=== PATIENT | male | born 1990 | race Caucasian/White ===

== ENCOUNTER 2022-01-02 16:38 | Inpatient (IN) | payer OTHER ==
[2022-01-02 19:25] LABS: Basophils % (A) 0 %; Eosinophils # (A) 0.2 k/uL (0-0.7); Eosinophils % (A) 2 %; HCT 43.1 % (39.0-53.0); HGB 14.9 gm/dL (13.0-17.5); Lymphocytes # (A) 1.7 k/uL (1.0-4.8); Lymphocytes % (A) 24 %; MCH 29.3 pg (25.0-35.0); MCHC 34.5 g/dL (31.0-37.0); Mean Platelet Volume 9.8; Monocytes # (A) 0.5 k/uL (0-1.0); Monocytes % (A) 6 %; Neutrophils # (A) 4.4 k/uL (1.3-7.7); Neutrophils % (A) 64 %; Platelet Count 193 k/uL (150-450); RBC 5.08 m/uL (4.30-5.90); RDW 13.2 % (11.5-15.5); WBC 6.9 k/uL (3.8-10.6)
[2022-01-02 19:40] LABS: Acetaminophen <10.0 ug/mL; African American GFR (CKD) >90 (>60 ml/min/1.73 sqM); Alcohol <10 mg/dL; Anion Gap 14 mmol/L; Blood Urea Nitrogen 7 mg/dL (9-20); Calcium 9.6 mg/dL (8.4-10.2); Carbon Dioxide 25 mmol/L (22-30); Chloride 103 mmol/L (98-107); Glucose 80 mg/dL (74-99); Non-African American GFR(CKD) >90 (>60 ml/min/1.73 sqM); Salicylate <1.0 mg/dL; Sodium 142 mmol/L (137-145)
[2022-01-02] MEDS ORDERED: SODIUM CHLORIDE 0.9% 500 ML 500 ML IV STA (19:41)
[2022-01-02 20:33] LABS: ALT 22 U/L (4-49); AST 37 U/L (17-59); Alkaline Phosphatase 81 U/L (38-126)
--- NOTE | 2022-01-02 21:08 | ED ---
General Adult HPI - General Chief complaint: Psychiatric Symptoms Stated complaint: Mental Health Time Seen by Provider: 01/02/22 19:30 Source: patient, RN notes reviewed, old records reviewed Mode of arrival: ambulatory Limitations: no limitations - History of Present Illness Initial comments: Patient is a 31-year-old male with past medical history remarkable for chronic depression since high school who presents with Department complaining of worseni ng thoughts over the last few days. These include thoughts point hurt himself. Denies any direct attempts he states were intentional. However on Saturday he did take cocaine. States he felt ashamed of himself after and intact approximately 20 Tylenol PM 200 mg tablets at that time. Has been feeling feeling fine since. No further ingestions. Denies any nausea, vomiting, abdominal pain. Denies any chest pain, shortness breath. Denies any fevers, chills, cough. Did not seek medical attention until today. Presents with his mother for evaluation. Denies any homicidal ideations, attempts, plans. Denies any visual or auditory hallucinations. Has seen a therapist in the past but no prior admissions. Is not on any medications at home. Presents for further evaluation at this time. - Related Data Allergies Allergy/AdvReac Type Severity Reaction Status Date / Time No Known Allergies Allergy Verified 01/02/22 17:43 Review of Systems ROS Statement: Those systems with pertinent positive or pertinent negative responses have been documented in the HPI. Review of Systems: CONST: Denies fever EYES: Denies blurry vision ENT: Denies nasal congestion C/V: Denies Chest pain RESP: Denies shortness of breath GI: Denies abdominal pain : Denies dysuria SKIN: Denies rash. MSK: Denies joint pain. NEURO: Denies headache PSYCH: Denies homicidal ideations/plans/attempts. Denies visual or auditory hallucinations. He endorses suicidal ideations. Denies plans attempts. Does e ndorse an ingestion which he states was not a suicide attempt. ROS Other: All systems not noted in ROS Statement are negative. Past Medical History Past Medical History: No Reported History History of Any Multi-Drug Resistant Organisms: None Reported Past Surgical History: Adenoidectomy, Tonsillectomy Past Psychological History: No Psychological Hx Reported Smoking Status: Never smoker Past Alcohol Use History: Occasional Past Drug Use History: Cocaine General Exam - General Exam Comments Initial Comments: General: Appears in no acute distress. HEAD: Normal with no signs of head trauma. EYES: PERRLA, EOMI, conjunctiva normal, no discharge. ENT: Hearing grossly intact, normal oropharynx. RESPIRATORY: Clear breath sounds bilaterally. No wheezes, rales, or rhonchi. C/V: Regular rate and rhythm. S1 and S2 auscultated, no edema, peripheral pulses 2+ and intact throughout ABD: Abd is soft, nontender, nondistended EXT: Normal range of motion, no obvious deformity SKIN: No rashes or lesions observed on exposed skin. NEURO: Alert and oriented x 4. Cranial nerves II-XII intact. No focal sensory or strength deficits. Limitations: no limitations Course Vital Signs 01/02/22 01/02/22 17:39 17:43 Temperature 98.4 F Pulse Rate 53 L Respiratory 20 Rate Blood Pressure 137/88 O2 Sat by Pulse 100 Oximetry Medical Decision Making - Medical Decision Making Based on the patient's presentation and physical exam, I do believe. Her psychiatric evaluation. Sitter was ordered. He was placed in green scrubs. Suicide precautions were ordered. He did have a large ingestion of Tylenol 3 days ago. Has no symptoms at this time but we will obtain overdose labs at this time. Patient was in agreement this plan. Vital signs are within normal limits. Nursing staff did reach out to toxicology, who was in agreement with the plan. Follow-up labs and workup are within normal limits, cleared for evaluation by psychiatry. Laboratory studies are remarkable for negative salicylates, Tylenol, alcohol. LFTs are within normal limits. Remainder the labs are unremarkable. EKG shows no signs of acute ischemia. Patient is currently cleared at this time for evaluation by psychiatry. I did update the family as well as the patient, and they were in agreement this plan. Patient's medically cleared for evaluation by psychiatry. Disposition is pending psychiatric evaluation. Patient was admitted to inpatient psych. - Lab Data Result diagrams: 01/02/22 18:51 01/02/22 18:51 Lab Results 01/02/22 01/02/22 01/02/22 Range/Units 18:51 18:51 19:45 WBC 6.9 (3.8-10.6) k/uL RBC 5.08 (4.30-5.90) m/uL Hgb 14.9 (13.0-17.5) gm/dL Hct 43.1 (39.0-53.0) % MCV 85.0 (80.0-100.0) fL MCH 29.3 (25.0-35.0) pg MCHC 34.5 (31.0-37.0) g/dL RDW 13.2 (11.5-15.5) % Plt Count 193 (150-450) k/uL MPV 9.8 Neutrophils % 64 % Lymphocytes % 24 % Monocytes % 6 % Eosinophils % 2 % Basophils % 0 % Neutrophils # 4.4 (1.3-7.7) k/uL Lymphocytes # 1.7 (1.0-4.8) k/uL Monocytes # 0.5 (0-1.0) k/uL Eosinophils # 0.2 (0-0.7) k/uL Basophils # 0.0 (0-0.2) k/uL PT (9.0-12.0) sec INR (<1.2) APTT (22.0-30.0) sec Sodium 142 (137-145) mmol/L Potassium 4.0 (3.5-5.1) mmol/L Chloride 103 (98-107) mmol/L Carbon Dioxide 25 (22-30) mmol/L Anion Gap 14 mmol/L BUN 7 L (9-20) mg/dL Creatinine 0.72 (0.66-1.25) mg/dL Est GFR (CKD-EPI)AfAm >90 (>60 ml/min/1.73 sqM) Est GFR (CKD-EPI)NonAf >90 (>60 ml/min/1.73 sqM) Glucose 80 (74-99) mg/dL Calcium 9.6 (8.4-10.2) mg/dL AST 37 (17-59) U/L ALT 22 (4-49) U/L Alkaline Phosphatase 81 (38-126) U/L Urine Color Urine Appearance (Clear) Urine pH (5.0-8.0) Ur Specific [place] (1.001-1.035) Urine Protein (Negative) Urine Glucose (UA) (Negative) Urine Ketones (Negative) Urine Blood (Negative) Urine Nitrite (Negative) Urine Bilirubin (Negative) Urine Urobilinogen (<2.0) mg/dL Ur Leukocyte Esterase (Negative) Salicylates <1.0 mg/dL Urine Opiates Screen (NotDetected) Ur Oxycodone Screen (NotDetected) Urine Methadone Screen (NotDetected) Ur Propoxyphene Screen (NotDetected) Acetaminophen <10.0 ug/mL Ur Barbiturates Screen (NotDetected) U Tricyclic Antidepress (NotDetected) Ur Phencyclidine Scrn (NotDetected) Ur Amphetamines Screen (NotDetected) U Methamphetamines Scrn (NotDetected) U Benzodiazepines Scrn (NotDetected) Urine Cocaine Screen (NotDetected) U Marijuana (THC) Screen (NotDetected) Serum Alcohol <10 mg/dL Coronavirus (PCR) (Not Detectd) 01/02/22 01/02/22 01/02/22 Range/Units 20:20 20:20 20:20 WBC (3.8-10.6) k/uL RBC (4.30-5.90) m/uL Hgb (13.0-17.5) gm/dL Hct (39.0-53.0) % MCV (80.0-100.0) fL MCH (25.0-35.0) pg MCHC (31.0-37.0) g/dL RDW (11.5-15.5) % Plt Count (150-450) k/uL MPV Neutrophils % % Lymphocytes % % Monocytes % % Eosinophils % % Basophils % % Neutrophils # (1.3-7.7) k/uL Lymphocytes # (1.0-4.8) k/uL Monocytes # (0-1.0) k/uL Eosinophils # (0-0.7) k/uL Basophils # (0-0.2) k/uL PT 10.3 (9.0-12.0) sec INR 0.9 (<1.2) APTT 26.3 (22.0-30.0) sec Sodium (137-145) mmol/L Potassium (3.5-5.1) mmol/L Chloride (98-107) mmol/L Carbon Dioxide (22-30) mmol/L Anion Gap mmol/L BUN (9-20) mg/dL Creatinine (0.66-1.25) mg/dL Est GFR (CKD-EPI)AfAm (>60 ml/min/1.73 sqM) Est GFR (CKD-EPI)NonAf (>60 ml/min/1.73 sqM) Glucose (74-99) mg/dL Calcium (8.4-10.2) mg/dL AST (17-59) U/L ALT (4-49) U/L Alkaline Phosphatase (38-126) U/L Urine Color Colorless Urine Appearance Clear (Clear) Urine pH 7.5 (5.0-8.0) Ur Specific [place] 1.006 (1.001-1.035) Urine Protein Negative (Negative) Urine Glucose (UA) Negative (Negative) Urine Ketones Negative (Negative) Urine Blood Negative (Negative) Urine Nitrite Negative (Negative) Urine Bilirubin Negative (Negative) Urine Urobilinogen <2.0 (<2.0) mg/dL Ur Leukocyte Esterase Negative (Negative) Salicylates mg/dL Urine Opiates Screen Not Detected (NotDetected) Ur Oxycodone Screen Not Detected (NotDetected) Urine Methadone Screen Not Detected (NotDetected) Ur Propoxyphene Screen Not Detected (NotDetected) Acetaminophen ug/mL Ur Barbiturates Screen Not Detected (NotDetected) U Tricyclic Antidepress Not Detected (NotDetected) Ur Phencyclidine Scrn Not Detected (NotDetected) Ur Amphetamines Screen Not Detected (NotDetected) U Methamphetamines Scrn Not Detected (NotDetected) U Benzodiazepines Scrn Not Detected (NotDetected) Urine Cocaine Screen Not Detected (NotDetected) U Marijuana (THC) Screen Not Detected (NotDetected) Serum Alcohol mg/dL Coronavirus (PCR) (Not Detectd) 01/03/22 Range/Units 02:06 WBC (3.8-10.6) k/uL RBC (4.30-5.90) m/uL Hgb (13.0-17.5) gm/dL Hct (39.0-53.0) % MCV (80.0-100.0) fL MCH (25.0-35.0) pg MCHC (31.0-37.0) g/dL RDW (11.5-15.5) % Plt Count (150-450) k/uL MPV Neutrophils % % Lymphocytes % % Monocytes % % Eosinophils % % Basophils % % Neutrophils # (1.3-7.7) k/uL Lymphocytes # (1.0-4.8) k/uL Monocytes # (0-1.0) k/uL Eosinophils # (0-0.7) k/uL Basophils # (0-0.2) k/uL PT (9.0-12.0) sec INR (<1.2) APTT (22.0-30.0) sec Sodium (137-145) mmol/L Potassium (3.5-5.1) mmol/L Chloride (98-107) mmol/L Carbon Dioxide (22-30) mmol/L Anion Gap mmol/L BUN (9-20) mg/dL Creatinine (0.66-1.25) mg/dL Est GFR (CKD-EPI)AfAm (>60 ml/min/1.73 sqM) Est GFR (CKD-EPI)NonAf (>60 ml/min/1.73 sqM) Glucose (74-99) mg/dL Calcium (8.4-10.2) mg/dL AST (17-59) U/L ALT (4-49) U/L Alkaline Phosphatase (38-126) U/L Urine Color Urine Appearance (Clear) Urine pH (5.0-8.0) Ur Specific [place] (1.001-1.035) Urine Protein (Negative) Urine Glucose (UA) (Negative) Urine Ketones (Negative) Urine Blood (Negative) Urine Nitrite (Negative) Urine Bilirubin (Negative) Urine Urobilinogen (<2.0) mg/dL Ur Leukocyte Esterase (Negative) Salicylates mg/dL Urine Opiates Screen (NotDetected) Ur Oxycodone Screen (NotDetected) Urine Methadone Screen (NotDetected) Ur Propoxyphene Screen (NotDetected) Acetaminophen ug/mL Ur Barbiturates Screen (NotDetected) U Tricyclic Antidepress (NotDetected) Ur Phencyclidine Scrn (NotDetected) Ur Amphetamines Screen (NotDetected) U Methamphetamines Scrn (NotDetected) U Benzodiazepines Scrn (NotDetected) Urine Cocaine Screen (NotDetected) U Marijuana (THC) Screen (NotDetected) Serum Alcohol mg/dL Coronavirus (PCR) Not Detected (Not Detectd) - EKG Data -: EKG Interpreted by Me EKG Comments: 12-lead Electrocardiogram Interpretation Note EKG was reviewed and interpreted by myself. 12-lead ECG performed at 2020 is interpreted by me as revealing sinus bradycardia at a rate of 52 beats per minute. [place] is normal. ND interval is 134 ms, QRS duration is 102 ms, QTc is 391 ms.. There were no ST or T wave abnormalities to suggest myocardial ischemia or injury. R wave progression across the precordium was satisfactory. By my interpretation this EKG is non-diagnostic for acute ischemia. Disposition Clinical Impression: Suicidal behavior Disposition: ADMITTED IP TO THIS HOSP Condition: Stable
[2022-01-02 21:21] LABS: Amphetamine Screen,Urine Not Detected (NotDetected); Barbiturate Screen,Urine Not Detected (NotDetected); Benzodiazepines Screen,Urine Not Detected (NotDetected); Cocaine Screen,Urine Not Detected (NotDetected); Methadone Screen, Urine Not Detected (NotDetected); Opiate Screen,Urine Not Detected (NotDetected); Oxycodone Screen, Urine Not Detected (NotDetected); Phencyclidine Screen,Urine Not Detected (NotDetected); Tricyclic Antidepressant,Urine Not Detected (NotDetected); Urn Cannabinoid Scrn Not Detected (NotDetected)
[2022-01-02 21:38] LABS: INR 0.9 (<1.2); Partial Thromboplastin Time 26.3 sec (22.0-30.0); Prothrombin Time 10.3 sec (9.0-12.0)
[2022-01-03] MEDS ORDERED: LORazepam 1 MG TAB PO PRN (05:06)
[2022-01-03] MEDS ORDERED: MAG HYDROX/AL HYDROX/SIMETH 30 ML CUP PO PRN (05:06)
[2022-01-03] MEDS ORDERED: ACETAMINOPHEN TAB 325 MG TAB PO PRN (05:06)
[2022-01-03] MEDS ORDERED: MAGNESIUM HYDROXIDE 2,400 MG/10 ML CUP PO PRN (05:06)
[2022-01-03] MEDS ORDERED: HALOPERIDOL LACTATE 5 MG/ML 1 ML VIAL IM PRN (05:06)
[2022-01-03] MEDS ORDERED: haloperidoL 5 MG TAB PO PRN (05:09)
[2022-01-03] MEDS ORDERED: LORazepam 2 MG/ML INJ IM PRN (05:09)
[2022-01-03 06:18] LABS: Appearance,Urine Clear (Clear); Bilirubin,Urine Negative (Negative); Blood,Urine Negative (Negative); Color,Urine Colorless; Glucose,Urine (UA) Negative (Negative); Ketones,Urine Negative (Negative); Leukocyte Esterase,Urine Negative (Negative); Nitrite,Urine Negative (Negative); PH, Urine 7.5 (5.0-8.0); Protein,Urine Negative (Negative); Specific Gravity,Urine 1.006 (1.001-1.035); Urobilinogen,Urine <2.0 mg/dL (<2.0)
[2022-01-03] MEDS: SERTRALINE 50 MG TAB PO SCH (12:28)
--- NOTE | 2022-01-03 13:23 | P.HP ---
Psychiatric H&P - . H&P Date: 01/03/22 History & Physical: Allergies Allergy/AdvReac Type Severity Reaction Status Date / Time No Known Allergies Allergy Verified 01/02/22 17:43 Vital Signs Temp 97.9 F 01/03/22 06:21 Pulse 50 L 01/03/22 06:21 Resp 16 01/03/22 06:21 BP 105/66 01/03/22 06:21 Pulse Ox 100 01/02/22 17:39 FiO2 Intake & Output 01/02/22 01/03/22 01/03/22 18:59 06:59 18:59 Weight 64.864 kg Laboratory Last Values WBC 6.9 k/uL (3.8-10.6) 01/02/22 18:51 RBC 5.08 m/uL (4.30-5.90) 01/02/22 18:51 Hgb 14.9 gm/dL (13.0-17.5) 01/02/22 18:51 Hct 43.1 % (39.0-53.0) 01/02/22 18:51 MCV 85.0 fL (80.0-100.0) 01/02/22 18:51 MCH 29.3 pg (25.0-35.0) 01/02/22 18:51 MCHC 34.5 g/dL (31.0-37.0) 01/02/22 18:51 RDW 13.2 % (11.5-15.5) 01/02/22 18:51 Plt Count 193 k/uL (150-450) 01/02/22 18:51 MPV 9.8 01/02/22 18:51 Neutrophils % 64 % 01/02/22 18:51 Lymphocytes % 24 % 01/02/22 18:51 Monocytes % 6 % 01/02/22 18:51 Eosinophils % 2 % 01/02/22 18:51 Basophils % 0 % 01/02/22 18:51 Neutrophils # 4.4 k/uL (1.3-7.7) 01/02/22 18:51 Lymphocytes # 1.7 k/uL (1.0-4.8) 01/02/22 18:51 Monocytes # 0.5 k/uL (0-1.0) 01/02/22 18:51 Eosinophils # 0.2 k/uL (0-0.7) 01/02/22 18:51 Basophils # 0.0 k/uL (0-0.2) 01/02/22 18:51 PT 10.3 sec (9.0-12.0) 01/02/22 20:20 INR 0.9 (<1.2) 01/02/22 20:20 APTT 26.3 sec (22.0-30.0) 01/02/22 20:20 Sodium 142 mmol/L (137-145) 01/02/22 18:51 Potassium 4.0 mmol/L (3.5-5.1) 01/02/22 18:51 Chloride 103 mmol/L (98-107) 01/02/22 18:51 Carbon Dioxide 25 mmol/L (22-30) 01/02/22 18:51 Anion Gap 14 mmol/L 01/02/22 18:51 BUN 7 mg/dL (9-20) L 01/02/22 18:51 Creatinine 0.72 mg/dL (0.66-1.25) 01/02/22 18:51 Est GFR (CKD-EPI)AfAm >90 (>60 ml/min/1.73 sqM) 01/02/22 18:51 Est GFR (CKD-EPI)NonAf >90 (>60 ml/min/1.73 sqM) 01/02/22 18:51 Glucose 80 mg/dL (74-99) 01/02/22 18:51 Calcium 9.6 mg/dL (8.4-10.2) 01/02/22 18:51 AST 37 U/L (17-59) 01/02/22 19:45 ALT 22 U/L (4-49) 01/02/22 19:45 Alkaline Phosphatase 81 U/L (38-126) 01/02/22 19:45 Urine Color Colorless 01/02/22 20:20 Urine Appearance Clear (Clear) 01/02/22 20:20 Urine pH 7.5 (5.0-8.0) 01/02/22 20:20 Ur Specific [place] 1.006 (1.001-1.035) 01/02/22 20:20 Urine Protein Negative (Negative) 01/02/22 20:20 Urine Glucose (UA) Negative (Negative) 01/02/22 20:20 Urine Ketones Negative (Negative) 01/02/22 20:20 Urine Blood Negative (Negative) 01/02/22 20:20 Urine Nitrite Negative (Negative) 01/02/22 20:20 Urine Bilirubin Negative (Negative) 01/02/22 20:20 Urine Urobilinogen <2.0 mg/dL (<2.0) 01/02/22 20:20 Ur Leukocyte Esterase Negative (Negative) 01/02/22 20:20 Salicylates <1.0 mg/dL 01/02/22 18:51 Urine Opiates Screen Not Detected (NotDetected) 01/02/22 20:20 Ur Oxycodone Screen Not Detected (NotDetected) 01/02/22 20:20 Urine Methadone Screen Not Detected (NotDetected) 01/02/22 20:20 Ur Propoxyphene Screen Not Detected (NotDetected) 01/02/22 20:20 Acetaminophen <10.0 ug/mL 01/02/22 18:51 Ur Barbiturates Screen Not Detected (NotDetected) 01/02/22 20:20 U Tricyclic Antidepress Not Detected (NotDetected) 01/02/22 20:20 Ur Phencyclidine Scrn Not Detected (NotDetected) 01/02/22 20:20 Ur Amphetamines Screen Not Detected (NotDetected) 01/02/22 20:20 U Methamphetamines Scrn Not Detected (NotDetected) 01/02/22 20:20 U Benzodiazepines Scrn Not Detected (NotDetected) 01/02/22 20:20 Urine Cocaine Screen Not Detected (NotDetected) 01/02/22 20:20 U Marijuana (THC) Screen Not Detected (NotDetected) 01/02/22 20:20 Serum Alcohol <10 mg/dL 01/02/22 18:51 Coronavirus (PCR) Not Detected (Not Detectd) 01/03/22 02:06 01/03/22 11:38 IDENTIFYING DATA: Patient is a 31-year-old male, currently lives with roommates, 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 HPI: Patient presented to the hospital yesterday and stated that he had a chronic history of depression which has gotten worse in the past several days. Patient also reported in the ER that he overdosed on 20 Tylenol PM's on Saturday and did not seek medical attention. Patient's urine drug screen was negative Tylenol level was negative. Patient was seen today in agreeable to speak to content writer. He appears to be somewhat anxious and nervous during the interview. He claims that he came into the hospital with his parents and claims that "I can trust them about my suicidal thoughts" and also spoke of his long history of depression. He states that "it comes in waves". He states that he thought he was able to manage it on his own. He claims that he has not been able to identify any recent stressors. He claims that he is having anhedonia and poor energy, feeling overwhelmed and hopeless. States that he went to [place] over the weekend and went to a club and was offered cocaine and used it for the first time. He states that since then he is feeling more depressed and anxious. He claims that he previously "struggled coming out my parents" however states that his parents were more supportive at this time. He states that his sleep and appetite have been on and off. Patient denies any current suicidal or homicidal ideations intent or plan. At this time patient denies any auditory or visual hallucinations. Patient denies any flight of ideas racing thoughts and increased in goal directed behavior. Patient admits to using cocaine recently for the first time and denies any other recreational drug use. PAST PSYCHIATRIC HISTORY: Patient states that his history of depression and anxiety. Patient denies being on any psychiatric medications. Patient denies any previous psychiatric hospitalizations. He claims that he tended to overdose and also drown himself 3 times in the past as a suicide attempt. Patient does not have any outpatient therapist or psychiatrist. PMH:denies ALLERGIES: as per EMR CHEMICAL DEPENDENCY HISTORY: as per HPI FAMILY PSYCHIATRIC/SUBSTANCE USE HISTORY: denies SOCIAL HISTORY: Patient was born and raised in [facility]. He states that he grew up raised by his mother and stepfather and does not know his biological dad. He claims that he completed high school and did an associates degree in college. He denies any legal history. He claims that he currently lives with roommates and 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 MENTAL STATUS EXAM: General Appearance: Patient appears to be thin, short hair, stated age is alert, directable, and attempts to cooperate. Patient appears to have fair hygiene and grooming. Behavior: Patient is seated without any agitated behavior. Appears to be nervous/anxious. Speech: Patient's speech is fluent and nonpressured. Hesitant at times. Mood/Affect: Patient reports their mood is depressed and anxious, affect is co ngruent and constricted. Suicidality/Homicidality: Patient denies having any homicidal ideation intent or plan. Denies any suicidal ideations intent or plan Perceptions: Patient denies any visual hallucinations and denies any auditory hallucinations Though content/process: There is no evidence of any delusional thought content and thought process is linear and goal-directed. Memory and concentration: AOX3, grossly intact for the purposes of this session. Can spell "WORLD" backwards Judgment and insight: poor STRENGTHS/WEAKNESSES: strength is that patient is resilient. Weakness is that jimmie moses has poor judgment and is impulsive INTELLECT: average IMPRESSIONS: Major depressive disorder, recurrent, severe without psychotic features Anxiety disorder unspecified Cocaine abuse PLAN: -Patient is admitted under voluntary status to MHU for stabilization of psychiatric symptoms and safety. Patient has signed adult voluntary form and medication consent and is placed in patient's chart. -Medications : Will start patient on Zoloft 50 mg daily for mood/anxiety, trazodone 50 mg daily at bedtime for insomnia/mood. -Ativan and Haldol PRN for agitation/aggression -Patient was counselled on substance abuse and desired to cut back on use -Patient was informed of the risks, benefits and side effects of the medication and patient verbally consented to taking the medications. Patient signed med consent form and was placed in chart. -Internal Medicine consult to perform medical evaluation and physical. -NRT - not needed as patient does not smoke -SW on board for discharge planning. Encourage patient to participate in groups to work on coping skills. 01/03/22 13:17
[2022-01-03] MEDS: traZODone HCL 50 MG TAB PO SCH (21:06)
--- NOTE | 2022-01-04 04:03 | P.CONS ---
History of Present Illness - Reason for Consult Consult date: 01/03/22 - History of Present Illness The patient is a 31-year-old male with a PMH of depression who had presented to the emergency room with complaints of suicidal ideation. The patient was admitted to the [facility] where he was seen and evaluated. The patient reports that he was recently at a [employer] party which he took what he suspects was cocaine. The following few days, he felt really guilty as it was very out of character for him to take drugs at a constitution party. He reports feeling down about himself and as a result decided to come to the emergency room. Denied extremity any physical complaints at the time of interview. Denied chest discomfort, shortness of breath, fever, chills, cough, nausea, vomiting, and, diarrhea. Laboratory evaluation was reviewed and was unremarkable. Review of systems: Pertinent positives and negatives as discussed in HPI, a complete review of systems was performed and all other systems are negative. Physical examination: General: non toxic, no distress, appears at stated age, normal weight Derm: no unusual rashes/lesions, no unusual ecchymoses, warm, dry Head: atraumatic, normocephalic, symmetric Eyes: EOMI, no lid lag, anicteric sclera ENT: Nose and ears atraumatic, no thrush, no pharyngeal erythema Neck: trachea midline, supple Mouth: no lip lesion, mucus membranes moist Cardiovascular: S1S2 reg, no murmur, no edema Lungs: CTA bilateral, no rhonchi, no rales , no accessory muscle use Abdominal: soft, nontender to palpation, no guarding Ext: no gross muscle atrophy, no contractures, Neuro: No gross focal neuro deficits noted Psych: Alert, oriented, appropriate affect Assessment/plan Cocaine use -Advised on importance of avoidance from substance use Depression with suicidal ideation -As per psychiatry Thank you for allowing us to participate in the care of this patient. We will follow peripherally. Do not hesitate to contact us with questions. Someone can be reached from the [facility] hospitalist group at all hours of the day at [phone]. Past Medical History Past Medical History: No Reported History History of Any Multi-Drug Resistant Organisms: None Reported Past Surgical History: Adenoidectomy, Tonsillectomy Smoking Status: Never smoker - Past Family History Father Family Medical History: Hypertension Medications and Allergies Allergies Allergy/AdvReac Type Severity Reaction Status Date / Time No Known Allergies Allergy Verified 01/02/22 17:43 Physical Exam Vitals: Vital Signs Temp Pulse Resp BP 01/03/22 06:21 97.9 F 50 L 16 105/66 Results CBC & Chem 7: 01/02/22 18:51 01/02/22 18:51
[2022-01-04] MEDS: SERTRALINE 50 MG TAB PO SCH (08:20)
[2022-01-04 09:26] LABS: Chol/HDL Ratio 2.64 Ratio; LDL Cholesterol,Calculated 93.2 mg/dL (0.0-131.0)
--- NOTE | 2022-01-04 10:31 | P.PN ---
Progress Note - Text Progress Note Date: 01/04/22 Interval History: Patient was seen sitting in a group today and was directable and agreeable to speak with story writer in the office. Patient claims that he is doing better in terms of his mood. He claims that his anxiety is also been mildly improving. He states that his mother is able to come by yesterday for visitation and also to drop off close which he feels better and now. He states that he has been trying to go to groups and participate as best as he can. He states that he hopes to speak to a therapist once he is discharged. He claims that she was able to sleep a bit better last night. He continues to have mild concerns about other patients on the unit. At this time patient denies any suicidal or homical ideations, intent or plan. Patient denies any auditory, visual hallucinations and denies any paranoia or delusions. Patient denies any side effects from the medications and has been compliant with meds. Mental Status Exam: General Appearance: Patient appears to be thin, short hair, stated age is alert, directable, and attempts to cooperate. Patient appears to have fair hygiene and grooming. Behavior: Patient is seated without any agitated behavior. Appears to be nervous/anxious, improving Speech: Patient's speech is fluent and nonpressured. Mood/Affect: Patient reports their mood is improving mildly, affect is congruent Suicidality/Homicidality: Patient denies having any homicidal ideation intent or plan. Denies any suicidal ideations intent or plan Perceptions: Patient denies any visual hallucinations and denies any auditory hallucinations Though content/process: There is no evidence of any delusional thought content and thought process is linear and goal-directed. Memory and concentration: AOX3, grossly intact for the purposes of this session Judgment and insight: Improving mildly IMPRESSIONS: Major depressive disorder, recurrent, severe without psychotic features Anxiety disorder unspecified Cocaine abuse Plan: -Patient continues to meet criteria for inpatient psychiatric admission for symptom stabilization and safety. Patient has signed adult voluntary form and medication consent and was placed in patient's chart. -Medications: Zoloft 50 mg daily for mood/anxiety, trazodone 50 mg daily at bedtime for insomnia/mood. -When necessary Ativan and Haldol for agitation/aggression. -NRT - not needed as patient does not smoke. -SW on board for discharge planning. Encouraged the patient to participate in milieu. Likely discharge tomorrow back home if patient continues to improve.
[2022-01-04] MEDS: traZODone HCL 50 MG TAB PO SCH (20:50)
[2022-01-05 06:37] VITALS: BP 107/58; PULSE 95; RESP 18; TEMP 97.4
[2022-01-05] MEDS: SERTRALINE 50 MG TAB PO SCH (08:23)
--- NOTE | 2022-01-05 10:26 | P.DS ---
Providers Date of admission: 01/03/22 04:52 Expected date of discharge: 01/05/22 Attending physician: Lion Muñoz MD Consults: 01/03/22 06:19 Consult Physician Routine Consulting Provider: Crescencio Barksdale Consult Reason/Comments: For H & P for Medical Follow Up Do you want consulting provider notified?: Yes Primary care physician: Stated None - Discharge Diagnosis(es) (1) Major depressive disorder, recurrent severe without psychotic features Current Visit: Yes Status: Acute Priority: High (2) Anxiety disorder Current Visit: Yes Status: Acute Priority: High (3) Cocaine abuse Current Visit: Yes Status: Acute Priority: Medium Hospital Course: Admission HPI: Admission note was completed by health technical writer "Patient is a 31-year-old male, currently lives with roommates, 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 Patient presented to the hospital yesterday and stated that he had a chronic history of depression which has gotten worse in the past several days. Patient also reported in the ER that he overdosed on 20 Tylenol PM's on Saturday and did not seek medical attention. Patient's urine drug screen was negative Tylenol level was negative. Patient was seen today in agreeable to speak to health technical writer. He appears to be somewhat anxious and nervous during the interview. He claims that he came into the hospital with his parents and claims that "I can trust them about my suicidal thoughts" and also spoke of his long history of depression. He states that "it comes in waves". He states that he thought he was able to manage it on his own. He claims that he has not been able to identify any recent stressors. He claims that he is having anhedonia and poor energy, feeling overwhelmed and hopeless. States that he went to [place] over the weekend and went to a club and was offered cocaine and used it for the first time. He states that since then he is feeling more depressed and anxious. He claims that he previously "struggled coming out my parents" however states that his parents were more supportive at this time. He states that his sleep and appetite have been on and off. Patient denies any current suicidal or homicidal ideations intent or plan. At this time patient denies any auditory or visual hallucinations. Patient denies any flight of ideas racing thoughts and increased in goal directed behavior. Patient admits to using cocaine recently for the first time and denies any other recreational drug use." Hospital course: Upon admission to the unit patient was directable and agreeable to commence treatment and signed adult voluntary form. Patient got along well with other patients on the unit and followed unit protocol. Patient was compliant with the medications and denied any side effects throughout hospital course. Patient was started on Zoloft 50 mg daily for mood/anxiety, trazodone 50 mg daily at bedtime for insomnia/mood. Patient spoke of his stressors and engaged in therapy both group and individual. Patient was also seen by medical team for history and physical exam. Throughout the course of the hospitalization patient gradually improved with regards to mood, anxiety, sleep and became more future oriented with improved insight and judgment. On the day of discharge patient denied any suicidal or homicidal ideations intent or plan denied any auditory or visual hallucinations. Patient endorsed wanting to live for his health and family. The patient denied any access to guns or weapons. Patient denied any paranoia and did not endorse any delusions. Patient does have a significant history of substance abuse and was counseled on abstaining from all substances including alcohol and marijuana. Patient was also counseled on the medications and need for regular compliance and was encouraged to follow-up with their outpatient appointment for mental health and also for primary care. Prior to discharge a family meeting will be arranged by older adult social work specialist to answer any questions and ensure safety upon discharge. Mental status exam: General Appearance: Patient appears to be thin, stated age is alert, pleasant, and cooperative. Patient is in no acute distress and has improved hygiene and grooming Behavior: Patient is calmly seated without any agitated behavior. Pleasant. Speech: Patient's speech is fluent and nonpressured. Mood/Affect: Patient reports their mood is "good", affect is congruent and euthymic. Suicidality/Homicidality: Patient denies having any suicidal or homicidal ideation intent or plan. Perceptions: Patient denies any auditory or visual hallucinations. Though content/process: There is no evidence of any delusional thought content and thought process is linear and goal-directed. more future oriented Memory and concentration: AOX3, grossly intact for the purposes of this session. Can spell "WORLD" backwards correctly. Judgment and insight: improved with guarded prognosis Impression: Major depressive disorder, recurrent, severe without psychotic features Anxiety disorder unspecified Cocaine abuse Plan: -Continue with discharge today as patient has improved and stabilized psychiatrically and is not currently an imminent threat to himself and/or others. Patient will remain at chronically elevated risk for harm to self and/or others due to his impulsivity and history of substance abuse. -Continue medications: Zoloft 50 mg daily for mood/anxiety, trazodone 50 mg daily at bedtime for insomnia/mood. -Patient was counseled on the need for medication compliance and appropriate follow-up at mental health and also primary care for medical issues. Patient verbalized understanding and agreed. -Social work to arrange for and conduct family meeting to ensure safety upon discharge and answer any questions/concerns. Social work also to arrange for patients follow up appointments for psychiatric care along with follow up with primary care provider. -Patient counseled on abstaining from recreational drugs and marijuana and alcohol. Was informed/educated on the adverse effects on their physical and mental health. Patient verbally agreed and understood. -Patient was instructed to return to the hospital or seek immediate medical care if their psychiatric or medical symptoms do worsen or reoccur. Allergies Allergy/AdvReac Type Severity Reaction Status Date / Time No Known Allergies Allergy Verified 01/02/22 17:43 Laboratory Results WBC 6.9 k/uL (3.8-10.6) 01/02/22 18:51 RBC 5.08 m/uL (4.30-5.90) 01/02/22 18:51 Hgb 14.9 gm/dL (13.0-17.5) 01/02/22 18:51 Hct 43.1 % (39.0-53.0) 01/02/22 18:51 MCV 85.0 fL (80.0-100.0) 01/02/22 18:51 MCH 29.3 pg (25.0-35.0) 01/02/22 18:51 MCHC 34.5 g/dL (31.0-37.0) 01/02/22 18:51 RDW 13.2 % (11.5-15.5) 01/02/22 18:51 Plt Count 193 k/uL (150-450) 01/02/22 18:51 MPV 9.8 01/02/22 18:51 Neutrophils % 64 % 01/02/22 18:51 Lymphocytes % 24 % 01/02/22 18:51 Monocytes % 6 % 01/02/22 18:51 Eosinophils % 2 % 01/02/22 18:51 Basophils % 0 % 01/02/22 18:51 Neutrophils # 4.4 k/uL (1.3-7.7) 01/02/22 18:51 Lymphocytes # 1.7 k/uL (1.0-4.8) 01/02/22 18:51 Monocytes # 0.5 k/uL (0-1.0) 01/02/22 18:51 Eosinophils # 0.2 k/uL (0-0.7) 01/02/22 18:51 Basophils # 0.0 k/uL (0-0.2) 01/02/22 18:51 PT 10.3 sec (9.0-12.0) 01/02/22 20:20 INR 0.9 (<1.2) 01/02/22 20:20 APTT 26.3 sec (22.0-30.0) 01/02/22 20:20 Sodium 142 mmol/L (137-145) 01/02/22 18:51 Potassium 4.0 mmol/L (3.5-5.1) 01/02/22 18:51 Chloride 103 mmol/L (98-107) 01/02/22 18:51 Carbon Dioxide 25 mmol/L (22-30) 01/02/22 18:51 Anion Gap 14 mmol/L 01/02/22 18:51 BUN 7 mg/dL (9-20) L 01/02/22 18:51 Creatinine 0.72 mg/dL (0.66-1.25) 01/02/22 18:51 Est GFR (CKD-EPI)AfAm >90 (>60 ml/min/1.73 sqM) 01/02/22 18:51 Est GFR (CKD-EPI)NonAf >90 (>60 ml/min/1.73 sqM) 01/02/22 18:51 Glucose 80 mg/dL (74-99) 01/02/22 18:[address] Glu mg/dL 102 01/02/22 18:51 Hemoglobin A1c 5.2 % (0.0-6.0) 01/02/22 18:51 Calcium 9.6 mg/dL (8.4-10.2) 01/02/22 18:51 AST 37 U/L (17-59) 01/02/22 19:45 ALT 22 U/L (4-49) 01/02/22 19:45 Alkaline Phosphatase 81 U/L (38-126) 01/02/22 19:45 Triglycerides 115.00 mg/dL (0.00-149.00) 01/02/22 19:45 Cholesterol 187.00 mg/dL (0.00-200.00) 01/02/22 19:45 LDL Cholesterol, Calc 93.2 mg/dL (0.0-131.0) 01/02/22 19:45 VLDL Cholesterol, Calc 23.00 mg/dL (5.00-40.00) 01/02/22 19:45 HDL Cholesterol 70.80 mg/dL (40.00-60.00) H 01/02/22 19:45 Cholesterol/HDL Ratio 2.64 Ratio 01/02/22 19:45 TSH 1.000 uIU/mL (0.350-5.500) 01/02/22 19:45 Urine Color Colorless 01/02/22 20:20 Urine Appearance Clear (Clear) 01/02/22 20:20 Urine pH 7.5 (5.0-8.0) 01/02/22 20:20 Ur Specific [place] 1.006 (1.001-1.035) 01/02/22 20:20 Urine Protein Negative (Negative) 01/02/22 20:20 Urine Glucose (UA) Negative (Negative) 01/02/22 20:20 Urine Ketones Negative (Negative) 01/02/22 20:20 Urine Blood Negative (Negative) 01/02/22 20:20 Urine Nitrite Negative (Negative) 01/02/22 20:20 Urine Bilirubin Negative (Negative) 01/02/22 20:20 Urine Urobilinogen <2.0 mg/dL (<2.0) 01/02/22 20:20 Ur Leukocyte Esterase Negative (Negative) 01/02/22 20:20 Salicylates <1.0 mg/dL 01/02/22 18:51 Urine Opiates Screen Not Detected (NotDetected) 01/02/22 20:20 Ur Oxycodone Screen Not Detected (NotDetected) 01/02/22 20:20 Urine Methadone Screen Not Detected (NotDetected) 01/02/22 20:20 Ur Propoxyphene Screen Not Detected (NotDetected) 01/02/22 20:20 Acetaminophen <10.0 ug/mL 01/02/22 18:51 Ur Barbiturates Screen Not Detected (NotDetected) 01/02/22 20:20 U Tricyclic Antidepress Not Detected (NotDetected) 01/02/22 20:20 Ur Phencyclidine Scrn Not Detected (NotDetected) 01/02/22 20:20 Ur Amphetamines Screen Not Detected (NotDetected) 01/02/22 20:20 U Methamphetamines Scrn Not Detected (NotDetected) 01/02/22 20:20 U Benzodiazepines Scrn Not Detected (NotDetected) 01/02/22 20:20 Urine Cocaine Screen Not Detected (NotDetected) 01/02/22 20:20 U Marijuana (THC) Screen Not Detected (NotDetected) 01/02/22 20:20 Serum Alcohol <10 mg/dL 01/02/22 18:51 Coronavirus (PCR) Not Detected (Not Detectd) 01/03/22 02:06 Vital Signs Temp 97.4 F L 01/05/22 06:00 Pulse 95 01/05/22 06:00 Resp 18 01/05/22 06:00 BP 107/58 01/05/22 06:00 Pulse Ox 98 01/05/22 06:00 FiO2 Patient Condition at Discharge: Stable Plan - Discharge Summary New Discharge Prescriptions: New traZODone HCL [Desyrel] 50 mg PO HS 30 Days tab Sertraline [Zoloft] 50 mg PO DAILY 30 Days tab Discharge Medication List Sertraline [Zoloft] 50 mg PO DAILY 30 Days tab 01/05/22 [Rx] traZODone HCL [Desyrel] 50 mg PO HS 30 Days tab 01/05/22 [Rx] Follow up Appointment(s)/Referral(s): [facility] [NON-STAFF] - 1-2 Days Activity/Diet/Wound Care/Special Instructions: Avoid the use of street drugs and alcohol. Take all prescriptions as prescribed. When you are in need of refills on your medications, please contact your medical provider and/or outpatient psychiatrist to have this done. Please go to scheduled outpatient appointment for aftercare treatment. If symptoms return or become worse, call the crisis line at and/or go to the nearest emergency room for evaluation. Discharge Disposition: HOME SELF-CARE
== END 2022-01-05 11:37 | disposition home or self-care (01) | DRG 885 ==
LOC: EC 16:38 → 3MHU 01-03 04:52
PROVIDERS: ADMIT Psychiatry & Neurology Psychiatry; ATTEND Psychiatry & Neurology Psychiatry
DX: F33.2 Major depressive disorder, recurrent severe without psychotic features (principal); F14.10 Cocaine abuse, uncomplicated; T39.1X2A Poisoning by 4-Aminophenol derivatives, intentional self-harm, initial encounter; F41.9 Anxiety disorder, unspecified; Z20.822 Contact with and (suspected) exposure to COVID-19; Z71.51 Drug abuse counseling and surveillance of drug abuser; G47.00 Insomnia, unspecified; Z79.899 Other long term (current) drug therapy; X58.XXXA Exposure to other specified factors, initial encounter
CPT/HCPCS: 36415; 80048; 80061; 80143; 80179; 80306; 80320; 81003; 82075; 83036; 84075; 84443; 84450; 84460; 85025; 85610; 85730; 87635; 99285